=== PATIENT | female | born 1995 | race Caucasian/White ===

== ENCOUNTER 2016-12-26 15:03 | Inpatient (IN) | payer BC, OTHER ==
[2016-12-26 16:13] LABS: Urine Bacteria Absent (Absent); Urine Bilirubin Negative (Negative); Urine Glucose Negative (Negative); Urine Nitrite Negative (Negative)
[2016-12-26 16:14] LABS: Benzodiazepine Urine Screen None Detected (None Detect)
[2016-12-26] MEDS ORDERED: Ibuprofen TAB* 600 MG PO ONE (16:41)
[2016-12-26 16:43] LABS: Hematocrit 43 % (35-47); Hemoglobin 14.8 g/dl (12.0-16.0); Mean Corpuscular HGB Conc 34 g/dl (31-36); Mean Corpuscular Hemoglobin 29 pg (27-31); Mean Corpuscular Volume 84 fL (80-97); Mean Platelet Volume 8 um3 (7.4-10.4); Red Blood Count 5.12 10^6/ul (4.0-5.4); Red Cell Distribution Width 14 % (10.5-15); White Blood Count 8.3 10^3/ul (3.5-10.8)
[2016-12-26 16:54] LABS: ALT 28 U/L (7-52); AST 17 U/L (13-39); Albumin 4.3 g/dL (3.2-5.2); Alkaline Phosphatase 61 U/L (34-104); Anion Gap 8 mmol/L (2-11); BUN/Creatinine Ratio 13.8 (8-20); Blood Urea Nitrogen 11 mg/dL (6-24); CO2 Carbon Dioxide 26 mmol/L (22-32); Calcium 9.7 mg/dL (8.6-10.3); Chloride 102 mmol/L (101-111); EGFR African American 116.4 (>60); EGFR Non-African American 90.5 (>60); Globulin 3.4 g/dL (2-4); Glucose 111 mg/dL (70-100); Potassium 3.8 mmol/L (3.5-5.0); Sodium 136 mmol/L (133-145); Total Protein 7.7 g/dL (6.4-8.9)
[2016-12-26 16:55] LABS: Acetaminophen < 15 mcg/mL; Alcohol < 10 mg/dL (<10); Salicylate < 2.50 mg/dL (<30)
[2016-12-26 17:03] LABS: TSH (Thyroid Stimulating Horm) 1.69 mcIU/mL (0.34-5.60)
--- NOTE | 2016-12-26 18:25 | ED ---
Sandra Clemente SooYoung, scribed for Vishnu Larson on 12/26/16 at 1526 . Psychiatric Complaint - HPI Summary HPI Summary: A 21 y/o F presents to ED with c/o depression ongoing for many years requesting MHE. Pert PMHx: BPD. Per mom, pt sent her messages that she as going to kill herself, was acting hysterical. Associated SI without gesture or plan; HI per mother. Per mom, pt has dreams of watching her family , last had this dream last week. Denies hallucinations. Smokes. Drinks. Uses recreational drugs. - History Of Current Complaint Chief Complaint: EDMentalHealth Time Seen by Provider: 12/26/16 15:12 Hx Obtained From: Patient, Family/[employer] Coordination And Production Head Onset/Duration: Still Present Timing: Constant Character: Depressed Related History: Positive For: Prior Psychiatric Issues - BPD Has Suicidal: Reports: Thoughts. Denies: With A Plan, Demonstrates Gesture Has Homicidal: Reports: Thoughts - Allergies/Home Medications Allergies/Adverse Reactions: Allergies Allergy/AdvReac Type Severity Reaction Status Date / Time Penicillins [PCN] Allergy Rash Verified 12/26/16 15:15 Home Medications: Home Medications Melatonin 10 mg PO BEDTIME PRN 12/26/16 [History Confirmed 12/26/16] QUEtiapine TAB* [SEROquel TAB*] 50 mg PO BEDTIME 12/26/16 [History Confirmed 06/12] PMH/Surg Hx/FS Hx/Imm Hx Previously Healthy: No Endocrine/Hematology History: Denies: Hx Diabetes Cardiovascular History: Denies: Hx Hypertension, Hx Pacemaker/ICD Sensory History: Denies: Hx Hearing Aid Psychiatric History: Reports: Other Psychiatric Issues/Disorders - Borderline personality disorder Denies: Hx Panic Disorder Infectious Disease History: Denies: Traveled Outside the [place] in Last 30 Days Review of Systems Psychological: Other - pos: SI, HI; neg: hallucinations Positive: Depressed All Other Systems Reviewed And Are Negative: Yes Physical Exam Triage Information Reviewed: Yes Vital Signs On Initial Exam: Initial Vitals Temp Pulse Resp BP Pulse Ox 99.0 F 108 20 143/62 98 12/26/16 15:05 12/26/16 15:05 12/26/16 15:05 12/26/16 15:05 12/26/16 15:05 Vital Signs Reviewed: Yes Appearance: Positive: Well-Appearing, No Pain Distress Skin: Positive: Warm, Skin Color Reflects Adequate Perfusion, Dry Head/Face: Positive: Normal Head/Face Inspection Eyes: Positive: EOMI, KARLI ENT: Positive: Normal ENT inspection Neck: Positive: Supple, Nontender Respiratory/Lung Sounds: Positive: Clear to Auscultation, Breath Sounds Present Cardiovascular: Positive: RRR, Pulses are Symmetrical in both Upper and Lower Extremities Abdomen Description: Positive: Nontender, Soft Bowel Sounds: Positive: Present Musculoskeletal: Positive: Normal, Strength/ROM Intact Neurological: Positive: Normal, Sensory/Motor Intact, Alert, Oriented to Person Place, Time Psychiatric: Positive: Depressed, Other - tearful at bedside Diagnostics - Vital Signs Vital Signs Temp Pulse Resp BP Pulse Ox 12/26/16 15:05 99.0 F 108 20 143/62 98 - Laboratory Result Diagrams: 12/26/16 15:49 12/26/16 15:49 Lab Statement: Any lab studies that have been ordered have been reviewed, and results considered in the medical decision making process. Course/Dx - Course Course Of Treatment: A 21 y/o F presents with c/o depression ongoing for many years requesting MHE. Pert PMHx: BPD. Per mom, pt sent her messages that she as going to kill herself, was acting hysterical. Associated SI without gesture or plan; HI per mother. Denies hallucinations. Pt given motrin in ED. Bloodwork and UA obtained. Medically cleared for MHE evaluation at 1700. 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 - Differential Dx/Clinical Impression Provider Diagnosis: Depression, Acute psychosis, Homicidal ideation Discharge - Discharge Plan Condition: Stable Disposition: ADMITTED TO [facility] Referrals: Hien Palafox, [facility] [Primary Care Provider] - The documentation as recorded by the Sandra drummond SooYoung accurately reflects the service I personally performed and the decisions made by , Vishnu Larson.
[2016-12-26] MEDS ORDERED: Al Hydrox/Mg Hydrox/Simet LIQ* 30 ML UDC PO PRN (20:47)
[2016-12-26] MEDS: QUEtiapine TAB* 25 MG PO SCH ×2 (22:36→23:20)
[2016-12-27] MEDS: Vitamin THERAPEUTIC TAB PO SCH (12:39)
[2016-12-27] MEDS: buPROPion TAB* 75 MG PO SCH (17:41)
--- NOTE | 2016-12-27 18:44 | HP ---
HISTORY AND PHYSICAL: DATE OF ADMISSION: 12/26/16 IDENTIFYING DATA: Magalie is a 21-year-old partnered, domiciled, unemployed female, who was referred by relatives and she was admitted on voluntary status. CHIEF COMPLAINT: "I could not take the depression any longer, I need help!" HISTORY OF PRESENT ILLNESS: The patient relates having a history of depression on and off for the past 2 years. She endorses several weeks of worsening symptoms of sad and irritable mood, decreased appetite, poor sleep, vague thoughts of suicide but no history of previous attempt or self-injury, daytime tiredness, isolating from others, impaired attention and concentrations, feelings of guilt, hopelessness, helplessness, and worthlessness in addition to self-image issues. The patient is currently on Seroquel 50 mg at bedtime prescribed by her primary care provider. She relates having been compliant with taking the prescribed medication. She denies endorses occasional cannabis use and urine toxicology screen is positive for cannabinoids. She describes stressors of strained relationship with a maternal aunt who has moved in with her and her boyfriend. She finds the aunt very triggering. Since quitting her job at [employer] last September, she has felt socially isolated as her only support is her live-in boyfriend who works the nightshift at [employer]. She also reports some financial pressure due to the fact that her boyfriend is the only one who is working. REVIEW OF PSYCHIATRIC SYMPTOMS: She reports historical diagnosis of bipolar disorder, describes difficulty with anger, low frustration tolerance, irritability and mood lability, but denies decreased need for sleep, increased goal directness, periods of racing thoughts, pressured speech or grandiosity. The patient denies excessive anxiety, panic attacks, obsessive thoughts or compulsive rituals. She describes difficulty with recurring nightmares of watching herself or others killing her family members. She describes a remote history of auditory hallucinations in the form of voices calling her name but this has not been the case recently. She also has historical diagnosis of attention deficit hyperactivity disorder. She described difficulty with easy distractibility, forgetfulness, difficulty organizing tasks and engaging in activities requiring sustained mental effort. PAST PSYCHIATRY HISTORY: This is the patient's first inpatient psychiatric admission. She has a history of outpatient therapy starting at age 12 at [facility] because of difficulty in her personal interactions with school peers. At the time she was diagnosed with ADHD and considerations for a mood disorder. At age 15, she was part of a study at [facility], she was diagnosed as having borderline personality disorder and was prescribed Geodon 100 mg daily that she says was not effective. The patient has not been in any outpatient care recently. Over the years, she has had diagnoses of ADHD, bipolar disorder, borderline personality disorder, and restless legs syndrome. MEDICATION HISTORY: She is able to recall past trial of ABILIFY caused her tongue to swell, Geodon that was not effective, CONCERTA was discontinued because of insomnia and nightmares, and STRATTERA caused increased irritability , mood lability, and auditory hallucinations and was discontinued. SUICIDE/HOMICIDE HISTORY: The patient denies any previous benny suicide attempts, any history of self-injury or violence. TRAUMA/ABUSE HISTORY: The patient reports that she was in the home when her mother attempted suicide by taking an overdose of a prescribed medications. She denies flashback or symptoms of hypervigilance or avoidance suggestive of PTSD. PAST MEDICAL HISTORY: Remarkable for obesity. She denies any other active medical problem. She is followed at [facility] by family nurse practitioner, Hien Palafox. The patient's menarche was at age 12. The patient has been sexually active with her live-in boyfriend. She uses condom for protection. She declined testing for STIs. SUBSTANCE ABUSE HISTORY: The patient admitted to smoking marijuana at least 2 to 3 times a week and she has been smoking since her teenage years. She denies the use of tobacco, alcohol, or other illicit drugs. FAMILY HISTORY: Family history of depression and suicide attempt in her biological mother and of bipolar disorder in maternal aunt and in cousins with suicide attempts and psychiatric hospitalizations. PERSONAL AND SOCIAL HISTORY: The patient is the only child of parents who when she was about [age] year old. Subsequently, her mother was in a relationship with her stepfather until she was 9 years old and that relationship ended. The mother has been in a relationship with a third gentleman since she was 9 to until now. The patient lives with her boyfriend in the house that belongs to her mother. The patient's maternal aunt recently moved in with them, which she reports is a source of stress. 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 She attended 1 semester of college at [employer] with plan to major in photography. She dropped out because of stress.. She was employed at [employer] and left her job in September because of "too much drama." She identified as being heterosexual. She has been sexually active with her live-in boyfriend in ways she finds satisfying. The patient describes spending her time in bed, watching TV, playing games and taking care of her 7 cats and 1 dog. REVIEW OF MEDICAL SYMPTOMS: Obesity. PHYSICAL EXAMINATION GENERAL: She is a moderately obese 21-year-old white female who does not appear to be in any acute physical distress. She is alert. She is oriented to time, place, person. ADMISSION VITAL SIGNS: Blood pressure 123/80, pulse is 87, respirations 18, temperature is 97.9. SKIN: Skin texture, turgor, and pigmentation are within normal limits. HEENT: Head is atraumatic, normocephalic, and symmetrical. Eyes: PERRLA. Tympanic membranes intact. Sclerae nonicteric. Conjunctivae clear. NECK: Trachea midline, freely mobile. No cervical lymphadenopathy. No nuchal rigidity. LUNGS: Clear to auscultation bilaterally. HEART: Regular rate and rhythm. S1, S2. No murmurs, gallops, or rubs. BREASTS EXAM: Not performed. ABDOMEN: Obese, but soft, nontender. No masses, organomegaly, or rebound tenderness. No scars noted. Active bowel sounds in 4 quadrants. EXTREMITIES: No pain. No limitation in the range of movement. Pulses are equal and adequate in all 4 extremities. NEUROLOGIC: Cranial nerves II through XII are intact. Cerebellar function intact. Muscle strength grade 5/5 in all 4 extremities. STRUCTURAL EXAM: The patient examined in both supine and upright positions. No gross AP or lateral asymmetry. Gait and movement are within normal limits. LABORATORY DATA: Laboratories on admission: Her CBC, complete metabolic panel , urinalysis within normal limits. Urine toxicology screen is positive for cannabinoids. MENTAL STATUS EXAMINATION: Finds a moderately obese 21-year-old white female with shoulder length brown hair and black rimmed glasses. She makes poor eye contact. She presents as guarded and superficially cooperative. She exhibits some degree of psychomotor retardation. No abnormal movements are observed. Her speech is terse and needs to be prompted. Her affect is constricted. Mood is depressed. Thoughts are linear and goal directed. No evidence of formal thought disorder and no overt delusions. She denies auditory or visual hallucinations. She endorses passive wish, but denies active suicidal ideation or urges to self-mutilate and she contracts for safety in this setting. Insight and judgment are limited. Impulse control is good. She is alert. She is oriented to time, place, and person. Attention, memory, and concentration are all poor. Fund of knowledge is adequate. Intelligence is estimated to be in normal average range. SUMMARY: First inpatient psychiatric admission for this 21-year-old female with history of cannabis use, outpatient care since age 12, multiple medication trials, currently trial of Seroquel 50 mg at bedtime, previous diagnosis of ADHD , bipolar disorder, borderline personality disorder, who was referred by relatives and was admitted voluntarily because of worsening depressive symptoms including vague thoughts of suicide and inability to contract for safety. Her medical history is remarkable for obesity. There is family history of depression and suicide attempt in her biological mother and of bipolar disorder in maternal aunt and cousins and suicide attempts and psychiatric hospitalizations. The patient described stressors of feeling socially isolated , strained relationship with her maternal aunt, and financial strain on her family. DIAGNOSTIC IMPRESSIONS: Major depressive disorder, recurrent, moderate, without psychotic feature; Attention deficit hyperactivity disorder, by history ; Borderline personality disorder.. TREATMENT PLAN: Admit to mental health unit, 15-minute checks, full code status , legal status is voluntary. Initiate comprehensive milieu, individual and group psychotherapeutic support. Medication management will involve continuing trial of Seroquel 50 mg at bedtime and new trial of bupropion for depression. The patient will also be asked to complete psychological testing to clarify her diagnosis. Discharge planning will involve reconnecting her to outpatient psychiatric providers after discharge from the hospital and possible referral for substance abuse treatment. [id number]/[facility] #: [id number] AVIVA
[2016-12-27] MEDS: Acetaminophen TAB* 325 MG PO PRN (19:50)
[2016-12-27] MEDS: QUEtiapine TAB* 25 MG PO SCH (20:37)
[2016-12-28] MEDS: Vitamin THERAPEUTIC TAB PO SCH (09:32)
[2016-12-28] MEDS: buPROPion TAB* 75 MG PO SCH (09:32)
--- NOTE | 2016-12-28 15:20 | PN ---
Subjective - Subjective Service Type: 05035 Hosp care 15 min low complexity Subjective: Sherrie reports that she is somewhat depressed but has not experienced any bad dream since her admission. Feels safe and was found to be happy with male peers in the milieu. Objective - Appearance Appearance: Obese Dysmorphic Features: No Hygiene: Normal Grooming: Well Kept - Behavior Psychomotor Activities: Normal Exhibits Abnormal Movement: No - Attitude and Relatedness Attitude and Relatedness: Appropriate Eye Contact: Good - Speech Quality: Unpressured Latencies: Normal Quantity: Appropriate - Mood Patient's Decription of Mood: "Fine" - Affect Observed Affect: Non-labile - Thought Process Patient's Thought Process: Coherent, Goal Directed Thought Content: No Passive Wish, No Suicidal Planning, No Homicidal Ideation, No Paranoid Ideation - Sensorium Experiencing Hallucinations: No, Sensorium is Clear Type of Hallucinations: Visual: No, Auditory: No, Command: No - Level of Consciousness Level of Consciousness: Alert Orientation: Yes Intact, Yes Orientated to Time, Yes Orientated to Place, Yes Orientated to Person - Impulse Control Impulse Control: Intact - Insight and Judgement Insight and Judgement: Fair - Group Participation Particating in Group Activities: Yes - Medication Management Medication Management Adherence: Yes Assessment - Assessment Merits Inpatient Hospitalization: For Stabilization, Pending Safe DC Plan Plan - Plan Treatment Plan: Name: SHERRIE TRIPP Birthdate: 1995 [id number] Continued Medication Management: Continue Outpt Medication Medications: Current Medications Acetaminophen (Tylenol Tab*) 650 mg PO Q4H PRN PRN Reason: PAIN or TEMP > 101 F Last Admin: 12/27/16 19:50 Dose: 650 mg Al Hydrox/Mg Hydrox/Simethicone (Maalox Plus*) 30 ml PO Q4H PRN PRN Reason: INDIGESTION Bupropion HCl (Wellbutrin Tab*) 75 mg PO DAILY [facility] Last Admin: 12/28/16 09:32 Dose: 75 mg Multivitamins (Theragran Tab*) 1 tab PO DAILY [facility] Last Admin: 12/28/16 09:32 Dose: 1 tab Quetiapine Fumarate (Seroquel Tab*) 50 mg PO BEDTIME [facility] Last Admin: 12/27/16 20:37 Dose: 50 mg - Discharge Plan Discharge Plan: Outpatient Follow Up Outpatient Program: [facility]
[2016-12-28] MEDS: Acetaminophen TAB* 325 MG PO PRN (15:47)
[2016-12-28] MEDS: QUEtiapine TAB* 25 MG PO SCH (20:13)
[2016-12-29] MEDS: buPROPion TAB* 75 MG PO SCH (08:39)
[2016-12-29] MEDS: Vitamin THERAPEUTIC TAB PO SCH (08:39)
--- NOTE | 2016-12-29 11:47 | PN ---
[facility]: Group Therapy Note - Service Type Service Type: 01999 Group Psychotherapy - Cognitive Behavioral Group Therapy ( CBT):Patient was attentive and participatory in CBT programming this morning, and remained in good behavioral control. Patient expressed positive insights regarding relevant treatment interventions and goals.
[2016-12-29] MEDS ORDERED: Polyethylene Glycol 3350* 17 GM PACKET PO PRN (12:03)
--- NOTE | 2016-12-29 12:17 | PN ---
Subjective - Subjective Service Type: 52544 Hosp care 15 min low complexity Subjective: Patient reports mild improvement in depressed mood and energy. She reports continued anxiety due to social phobia. She reports dreams of suicide. She requests suggestions for sleep aides as melatonin can worsen nightmares. She reports no BM since last week and attributes this to unfamiliar surroundings. She reports hx of constipation, treated well with miralax. Objective - Appearance Appearance: Obese Dysmorphic Features: Yes Hygiene: Normal Grooming: Well Kept - Behavior Psychomotor Activities: Normal Exhibits Abnormal Movement: No - Attitude and Relatedness Attitude and Relatedness: Cooperative Eye Contact: Good - Speech Quality: Unpressured Latencies: Normal Quantity: Appropriate - Mood Patient's Decription of Mood: "Anxious" - Affect Observed Affect: Good Affect Consistent with: Euthymia - Thought Process Patient's Thought Process: Coherent, Goal Directed Thought Content: No Passive Wish, No Suicidal Planning, No Homicidal Ideation, No Paranoid Ideation - Sensorium Experiencing Hallucinations: No, Sensorium is Clear Type of Hallucinations: Visual: Yes, Auditory: Yes, Command: Yes - Level of Consciousness Level of Consciousness: Alert Orientation: Yes Intact, Yes Orientated to Time, Yes Orientated to Place, Yes Orientated to Person - Impulse Control Impulse Control: Tenuous - Insight and Judgement Insight and Judgement: Good - Group Participation Particating in Group Activities: Yes - Medication Management Medication Management Adherence: Yes Assessment - Assessment Merits Inpatient Hospitalization: For Immediate Safety, For Stabilization, For Discharge Planning Inpatient DSM-IV Dx: I: MDD; ADHD by hx. II: borderline personality d/o. III: obesity, constipation. IV: stressors r/t unemployment, financial strain. V: 45 Clinical Impression: Patient is a 21yo domiciled, unemployed female present for first psychiatric hospitalization. She reports some improvement in depressive symptoms and endorses anxiety. Continued hospitalization necessary to plan for family meeting and discharge. Plan - Plan Treatment Plan: Name: SHERRIE TRIPP Birthdate: 1995 [id number] Continue quetiapine and buproprion. Add hydroxyzine for anxiety and insomnia. Add miralax for constipation and encourage fluids and physical activity. Decrease observation to 30 min and allow staff pass. Continued Medication Management: Different Medication Medications: Current Medications Acetaminophen (Tylenol Tab*) 650 mg PO Q4H PRN PRN Reason: PAIN or TEMP > 101 F Last Admin: 12/28/16 15:47 Dose: 650 mg Al Hydrox/Mg Hydrox/Simethicone (Maalox Plus*) 30 ml PO Q4H PRN PRN Reason: INDIGESTION Bupropion HCl (Wellbutrin Tab*) 75 mg PO DAILY [facility] Last Admin: 12/29/16 08:39 Dose: 75 mg Hydroxyzine HCl (Atarax Tab*) 25 mg PO Q6H PRN PRN Reason: ANXIETY/INSOMNIA Multivitamins (Theragran Tab*) 1 tab PO DAILY [facility] Last Admin: 12/29/16 08:39 Dose: 1 tab Polyethylene Glycol/Electrolytes (Miralax*) 17 gm PO DAILY PRN PRN Reason: CONSTIPATION Quetiapine Fumarate (Seroquel Tab*) 50 mg PO BEDTIME [facility] Last Admin: 12/28/16 20:13 Dose: 50 mg - Discharge Plan Discharge Plan: Outpatient Follow Up Outpatient Program: [facility]
[2016-12-29] MEDS: hydrOXYzine HCL TAB* 25 MG PO PRN ×2 (12:20→20:10)
[2016-12-29] MEDS: QUEtiapine TAB* 25 MG PO SCH (20:07)
[2016-12-30 07:46] VITALS: BP 121/65
[2016-12-30] MEDS: Vitamin THERAPEUTIC TAB PO SCH (09:17)
[2016-12-30] MEDS: buPROPion TAB* 75 MG PO SCH (09:17)
[2016-12-30] MEDS: hydrOXYzine HCL TAB* 25 MG PO PRN ×2 (11:43→22:51)
--- NOTE | 2016-12-30 14:33 | PN ---
Subjective - Subjective Service Type: 24080 Hosp care 15 min low complexity Subjective: Patient reports improved mood and sleep. She reports decrease in anxiety with use of hydroxyzine. She states that she spoke with her mother about planning a family meeting-- she is not available today but can meet any time tomorrow. Sherrie reports current stressors are lessened in that her aunt is no longer living in the home. She plans to help clean and organize the home upon returning. She reports a small BM and continues to utilize miralax as ordered. She requests use of calvin's vapor rub for nasal congestion. Objective - Appearance Appearance: Well Developed/Nourished, Obese Dysmorphic Features: No Hygiene: Normal Grooming: Well Kept - Behavior Psychomotor Activities: Normal Exhibits Abnormal Movement: No - Attitude and Relatedness Attitude and Relatedness: Cooperative Eye Contact: Good - Speech Quality: Unpressured Latencies: Normal Quantity: Appropriate - Mood Patient's Decription of Mood: "Okay" - Affect Observed Affect: Good Affect Consistent with: Euthymia - Thought Process Patient's Thought Process: Coherent, Goal Directed Thought Content: No Passive Wish, No Suicidal Planning, No Homicidal Ideation, No Paranoid Ideation - Sensorium Experiencing Hallucinations: No, Sensorium is Clear Type of Hallucinations: Visual: No, Auditory: No, Command: No - Level of Consciousness Level of Consciousness: Alert Orientation: Yes Intact, Yes Orientated to Time, Yes Orientated to Place, Yes Orientated to Person - Impulse Control Impulse Control: Intact - Insight and Judgement Insight and Judgement: Good - Group Participation Particating in Group Activities: Yes - Medication Management Medication Management Adherence: Yes Assessment - Assessment Merits Inpatient Hospitalization: For Discharge Planning, Pending Safe DC Plan Inpatient DSM-IV Dx: I: MDD; ADHD by hx. II: borderline personality d/o. III: obesity, constipation. IV: stressors r/t unemployment, financial strain. V: 45 Clinical Impression: Patient is a 21yo domiciled, unemployed female present for first psychiatric hospitalization. She reports improvement in depressive symptoms and anxiety. Family meeting and discharge planned for tomorrow. Plan - Plan Treatment Plan: Name: SHERRIE TRIPP Birthdate: 1995 [id number] Continue medications and intensive acute inpatient psychiatric treatment. Decrease observation to 30 min and allow staff pass. Continued Medication Management: Different Medication Medications: Current Medications Acetaminophen (Tylenol Tab*) 650 mg PO Q4H PRN PRN Reason: PAIN or TEMP > 101 F Last Admin: 12/28/16 15:47 Dose: 650 mg Al Hydrox/Mg Hydrox/Simethicone (Maalox Plus*) 30 ml PO Q4H PRN PRN Reason: INDIGESTION Bupropion HCl (Wellbutrin Tab*) 75 mg PO DAILY [facility] Last Admin: 12/30/16 09:17 Dose: 75 mg Hydroxyzine HCl (Atarax Tab*) 25 mg PO Q6H PRN PRN Reason: ANXIETY/INSOMNIA Last Admin: 12/30/16 11:43 Dose: 25 mg Multivitamins (Theragran Tab*) 1 tab PO DAILY [facility] Last Admin: 12/30/16 09:17 Dose: 1 tab Polyethylene Glycol/Electrolytes (Miralax*) 17 gm PO DAILY PRN PRN Reason: CONSTIPATION Last Admin: 12/29/16 14:44 Dose: 17 gm Quetiapine Fumarate (Seroquel Tab*) 50 mg PO BEDTIME [facility] Last Admin: 12/29/16 20:07 Dose: 50 mg - Discharge Plan Discharge Plan: Outpatient Follow Up Outpatient Program: [facility]
[2016-12-30] MEDS: QUEtiapine TAB* 25 MG PO SCH (21:57)
[2016-12-31] MEDS: Vitamin THERAPEUTIC TAB PO SCH (08:57)
[2016-12-31] MEDS: buPROPion TAB* 75 MG PO SCH (08:58)
--- NOTE | 2016-12-31 16:11 | DS ---
CC: [facility]; JULIANNA Choi DATE OF ADMISSION: 12/26/2016. DATE OF DISCHARGE: 12/31/2016. SUPERVISING PSYCHIATRIST: Dr. Ezequiel Wells * (dictated by ANGELA Aleman ). DISCHARGE DIAGNOSES: AXIS I: Major depressive disorder, moderate, recurrent; ADHD by history. AXIS II: Borderline personality disorder; intellectual disability, mild. AXIS III: Obesity. AXIS IV: Stressors related to interpersonal relationships, unemployment, financial strain, conflict with parents. AXIS V: 65. CONDITION AT TIME OF DISCHARGE: Improved. The patient has been pleasant and euthymic. She has been participating fully in programming. She has been interactive with peers and staff and she is receptive to suggestions in regards to coping skills and stress management. Her mother joined for discharge planning meeting today with Montserrat Lindquist and this aligner typewriter, and discussed stressors leading to hospitalization and plans for follow-up care. The patient and mother were given positive feedback about interactions with each other and observation of effective communication. The patient is agreeable to following up with [facility] and [facility]. sawmill or timber yard worker, mother and patient problem solved in regards to patient's hoarding behavior and caring for multiple animals in the home. Patient denies depressed mood and anxiety. She denies suicidal ideation or SIB urges. MENTAL STATUS EXAM: The patient is well-groomed, adequate ADL's. She wears her hair down and dark-rimmed glasses. She is wearing her own clothing. She is pleasant and cooperative and answers questions fully. She is alert and oriented times three. Her concentration is good. Her memory is 3/3. Her mood is good. Affect is full range. Speech is soft and articulate. Thought process is logical, goal-directed, and coherent. Thought content negative for AV hallucinations, SI, HI, and SBI urges. Her insight is good. Her judgment is fair. Fund of knowledge is adequate. DISCHARGE INSTRUCTIONS: Instructions were given to the patient by nursing staff. The following medications were electronically prescribed to [facility] in [place]: The patient will continue Bupropion 75 mg p.o. daily and Quetiapine 50 mg p.o. at bedtime. She was instructed on use of prn Hydroxyzine 25 mg b.i.d., as needed only for anxiety. She was provided with a two weeks' supply of all of these medications. Diet is regular. Activity is ambulation as tolerated. Tobacco cessation not applicable. There are no pending labs or diagnostic studies at the time of discharge. She will follow-up with [facility] and has an intake scheduled by train planner. She will see her primary care provider on Wednesday and is instructed to ask for bridge prescriptions until she meets with a prescriber at [facility]. HOSPITAL COURSE: A. Reason for admission: The patient presented to the emergency department with an increase in depression and agitation and vague thoughts of suicide. She had had decrease in functioning and ADL's. B. Psychiatric treatment rendered: The patient was admitted to the Adult Behavioral Services Unit on voluntary status. Codes status was full. She was placed on 15 minute checks for safety, encouraged to participate in supportive milieu and individual and group psychoeducation. On-call psychiatrist continued Quetiapine at bedtime and added Bupropion for depression. She tolerated this well. She participated fully in unit programming. She denies side effects of medicines. She inquired about medications for anxiety and sleep ; discussed use of Hydroxyzine as needed and she was agreeable to a trial of this. She completed an MMPI for diagnostic clarification; please see report by Dr. Rohan Dunham. She had seen counselors in the past at [facility]. She reported desire to follow-up with [facility] instead. The patient was safe on all checks. She was decreased to q.30 minute observation and allowed to go on staff pass. One of the stressors that led to admission was her aunt living in the home who has since moved out. Her mother was involved in discharge planning and present for discharge meeting with this aligner typewriter and the social media campaign manager. The patient was agreeable to discharge and looking forward to returning home. She was encouraged to return to the ED should symptoms worsen. DINA SCHNEIDER NP [id number]/[facility] #: [id number] AVIVA
== END 2016-12-31 12:15 | disposition home or self-care (01) | DRG 751 ==
LOC: ED 15:03 → BSU 19:58
PROVIDERS: ADMIT Psychiatry & Neurology Psychiatry; ATTEND Psychiatry & Neurology Psychiatry
PROC: GZHZZZZ Group Psychotherapy (ICD-10-PCS; principal; 2016-12-29)
DX: F33.1 Major depressive disorder, recurrent, moderate (principal); F70 Mild intellectual disabilities; E66.9 Obesity, unspecified; F90.9 Attention-deficit hyperactivity disorder, unspecified type; F60.3 Borderline personality disorder; G25.81 Restless legs syndrome; F12.90 Cannabis use, unspecified, uncomplicated; F41.9 Anxiety disorder, unspecified; K59.00 Constipation, unspecified; F40.10 Social phobia, unspecified; Z56.0 Unemployment, unspecified; Z81.8 Family history of other mental and behavioral disorders; Z88.0 Allergy status to penicillin; Z68.35 Body mass index [BMI] 35.0-35.9, adult
CPT/HCPCS: 36415; 80053; 80307; 80320; 80329; 81003; 81015; 84443; 84702; 85025; 87086; A9270-GY; G0480

== ENCOUNTER 2018-02-21 08:40 | Inpatient (IN) | payer OTHER ==
[2018-02-21] MEDS ORDERED: Clindamycin CAP* 150 MG PO ONE (09:06)
[2018-02-21] MEDS ORDERED: Ibuprofen TAB* 600 MG PO ONE (09:06)
--- NOTE | 2018-02-21 09:08 | ED ---
Psychiatric Complaint - HPI Summary HPI Summary: This pt is a 22 y/o female, accompanied by her mother, presenting to [facility] for mental health evaluation and dental pain. Pt reports left sided dental pain and had waited 2 weeks to get an appointment to see the dentist today. Pt states the dentist canceled the appointment and now she is "pissed because it's going to be another 2 weeks to get an appointment." Mother reports this morning "she freaked out." Per mother, pt is very unstable. Pt states "I'm unstable because I can't sleep and have not gotten a good night sleep because of my toothache." She reports trying Melatonin, Zquil, tea to help her sleep with no effect. Pt admits to feeling depressed. Denies SI thoughts/plan, hallucinations. Mother states last week pt told her she is hearing voices and stated she wants to . Mother reports the pt has stopped taking her antidepressant medications and won' t see her therapist. Pt notes she is here today because she asked to come here to get evaluated. Pt lives alone. Mother notes "she lives in [facility] and she does not shower." PMHx: borderline personality disorder (diagnosed 6 years ago), anxiety, depression. Pt was hospitalized in September 2016 for mental health and per mother pt was doing well until recently. Pt admits to marijuana use, states she has not smoked marijuana in 1 week. - History Of Current Complaint Chief Complaint: EDPsychosocial Time Seen by Provider: 02/21/18 08:56 Hx Obtained From: Patient, Family/Lance Crewmember - Mother Onset/Duration: Lasting Days, Still Present Timing: Days Severity Currently: Moderate Character: Depressed, Anxious, Angry, Frustrated Aggravating Factor(s): Recent Stress - dentist canceled appointment Alleviating Factor(s): Nothing Associated Signs And Symptoms: Positive: Sleep Disturbance Related History: Positive For: Prior Psychiatric Issues Has Suicidal: Denies: Thoughts, With A Plan Has Homicidal: Denies: Thoughts, With A Plan Recent Stressor(s): dentist canceled appointment - Allergies/Home Medications Allergies/Adverse Reactions: Allergies Allergy/AdvReac Type Severity Reaction Status Date / Time Penicillins Allergy Rash Verified 02/21/18 09:07 Home Medications: Home Medications NK [No Home Medications Reported] 02/21/18 [History Confirmed 02/21/18] PMH/Surg Hx/FS Hx/Imm Hx Endocrine/Hematology History: Denies: Hx Diabetes Cardiovascular History: Denies: Hx Hypertension, Hx Pacemaker/ICD Sensory History: Denies: Hx Cataracts, Hx Contacts or Glasses, Hx Hearing Aid Opthamlomology History: Denies: Hx Cataracts, Hx Contacts or Glasses Psychiatric History: Reports: Hx Anxiety, Hx Depression, Hx of Violent Episodes Against Others, Other Psychiatric Issues/Disorders - Borderline personality disorder Denies: Hx Eating Disorder, Hx Panic Disorder Infectious Disease History: No Infectious Disease History: Denies: Hx Clostridium Difficile, Traveled Outside the [place] in Last 30 Days - Family History Family History: Mother with hx of depression. - Social History Alcohol Use: None Substance Use Type: Reports: None Substance Use Comment - Amount & Last Used: occassional, last used 1 week ago Smoking Status (MU): Never Smoked Tobacco Length of Time of Smoking/Using Tobacco: Patient has not smoked cig, chewed or vapored within the last 30 days. Review of Systems Constitutional: Other - sleep disturbance Negative: Fever, Chills Positive: Dental Pain Positive: no symptoms reported Positive: Anxious, Depressed. Negative: Other - SI thoughts, plan, hallucinations All Other Systems Reviewed And Are Negative: Yes Physical Exam - Summary Physical Exam Summary: Appearance: Well appearing, no pain distress Skin: warm, dry, reflects adequate perfusion Head/face: Pt has tenderness around the 17th tooth. Eyes: EOMI, KARLI ENT: normal Neck: supple, nontender Respiratory: CTA, breath sounds present Cardiovascular: RRR, pulses symmetrical Abdomen: nontender, soft Bowel: present Musculoskeletal: normal, strength/ROM intact Neuro: normal, sensory motor intact, A&Ox3 Psych: anxious Triage Information Reviewed: Yes Vital Signs On Initial Exam: Initial Vitals Temp Pulse Resp BP Pulse Ox 98.2 F 95 18 145/101 98 02/21/18 08:41 02/21/18 08:41 02/21/18 08:41 02/21/18 08:41 02/21/18 08:41 Vital Signs Reviewed: Yes Diagnostics - Vital Signs Vital Signs Temp Pulse Resp BP Pulse Ox 02/21/18 08:41 98.2 F 95 18 145/101 98 - Laboratory Result Diagrams: 02/21/18 09:04 02/21/18 09:04 Lab Statement: Any lab studies that have been ordered have been reviewed, and results considered in the medical decision making process. Re-Evaluation - Re-Evaluation First Eval Re-Evaluation Time: 10:32 Comment: Pt is medically cleared. Course/Dx - Course Assessment/Plan: Pt is a 22 y/o female, with hx of borderline personality disorder noncompliant with medications, who presents to the ED for mental health evaluation and dental pain. Pt reports she is depressed. Per mother pt has voiced SI and hallucinations. Blood work was obtained. In the ED course she was given clindamycin and ibuprofen. Pt was medically cleared at 10:32. She had a mental health evaluation and her case was reviewed by Dr. Wells, psychiatrist. Dr. Wells will admit the pt voluntarily with diagnosis of unspecified depression. - Differential Dx/Clinical Impression Differential Diagnosis/HQI/PQRI: Positive: Anxiety, Depression, Suicidal Ideation Provider Diagnosis: Depression Discharge - Sign-Out/Discharge Documenting (check all that apply): Patient Departure - Admit to [facility] - Discharge Plan Condition: Stable Disposition: PSYCHIATRIC FACILITY-[facility] [place] Referrals: [facility] [Primary Care Provider] - - Billing Disposition and Condition Condition: STABLE Disposition: Psychiatric Facility [facility] [place] - Attestation Statements Document Initiated by Scribe: Yes Documenting Scribe: Eveline Yanez Provider For Whom Lukas is Documenting (Include Credential): Vishnu Larson MD Scribe Attestation: Eveline Clemente scribed for Vishnu Larson MD on 02/21/18 at 1242. Scribe Documentation Reviewed: Yes Provider Attestation: The documentation as recorded by the Eveline drummond accurately reflects the service I personally performed and the decisions made by , Vishnu Larson MD
[2018-02-21 09:19] LABS: ABS Basophils 0.1 10^3/ul (0-0.2); ABS Eosinophils 0.1 10^3/ul (0-0.6); ABS Lymphocytes 2.7 10^3/ul (1.0-4.8); ABS Monocytes 0.6 10^3/ul (0-0.8); ABS Neutrophils 6.9 10^3/ul (1.5-7.7); ABS Nucleated RBC 0 10^3/ul; Eosinophil % 1.3 % (0-6); Hematocrit 43 % (35-47); Lymphocyte % 26.4 % (25-47); Mean Corpuscular HGB Conc 35 g/dl (31-36); Mean Corpuscular Hemoglobin 30 pg (27-31); Mean Corpuscular Volume 86 fL (80-97); Mean Platelet Volume 8.5 um3 (7.4-10.4); Nucleated Red Blood Cells % 0.2; Platelet Count 275 10^3/ul (150-450); Red Blood Count 5.05 10^6/ul (4.00-5.40); Red Cell Distribution Width 14 % (10.5-15); White Blood Count 10.4 10^3/ul (3.5-10.8)
[2018-02-21 09:39] LABS: EGFR Non-African American 98.1 (>60)
[2018-02-21] MEDS ORDERED: Al Hydrox/Mg Hydrox/Simet LIQ* 30 ML UDC PO PRN (12:48)
[2018-02-21] MEDS ORDERED: hydrOXYzine HCL TAB* 50 MG PO PRN (12:50)
[2018-02-21] MEDS: Acetaminophen TAB* 325 MG PO PRN (15:41)
[2018-02-21] MEDS: Benzocaine/Menthol LOZ* 1 LOZENGE PO PRN (18:07)
[2018-02-21] MEDS: Ibuprofen TAB* 600 MG PO PRN (20:43)
[2018-02-22] MEDS: Benzocaine/Menthol LOZ* 1 LOZENGE PO PRN ×3 (00:55→21:21)
[2018-02-22] MEDS: Ibuprofen TAB* 600 MG PO PRN (09:03)
[2018-02-22] MEDS: Acetaminophen TAB* 325 MG PO PRN (10:23)
[2018-02-22] MEDS ORDERED: Mirtazapine TAB* 15 MG PO PRN (12:36)
--- NOTE | 2018-02-22 15:40 | HP ---
DATE OF ADMISSION: 02/21/2018. PROVIDER: Brianda Bowden NP in Psychiatry. SUPERVISING PHYSICIAN: Dr. Ezequiel Wells * (dictated by Brianda Bowden NP). JUSTIFICATION FOR ADMISSION: The patient is in need of 24 hour supervision and care secondary to suicidal ideation. CHIEF COMPLAINT: "I want help sleeping and I want to get my energy and motivation back." HISTORY OF PRESENT ILLNESS: The patient is a 22-year-old female who is single, white, with a history of depression and anxiety who arrived brought in by her mom on a voluntary status following her making statements such as "I don't really want to live anymore." Magalie is endorsing needing her mom in her life. She says she has been depressed since fifth grade and she has not been able to sleep for a couple of years. She describes her depression as having no energy and no social outlets. She is not sad, but she is "blah-ava." She is fatigued. She does not want to get out of bed because she does not want to face the world. She states that her sleep is correlated with depression. She states about her anxiety, "Mom thinks I'm paranoid;" rather it seems that she has high sensitivity, that she is worried about what other people are thinking about her and what they might say about her behind her back. She is stressed out by feeling "lousy." She is not working. She is lonely. She also has back pain related to a weak core according to the doctors that she has been to. She states she was suicidal last year because she was living with an aunt named Rizwana who was "an awful person." She does not feel as though she can work right now. She has no energy. She has little interest in anything besides playing video games. She finds it difficult to concentrate. She reports that she does not eat well and she does from time to time have suicidal ideation. PAST PSYCHIATRIC HISTORY: He was admitted here at [facility] in December of 2016. She is not currently receiving outpatient treatment. She used to receive treatment through [facility] and now through Hien Palafox NP, but she is not taking any medications right now. Suicidal ideation is reported through her mother. She does not have access to weapons. She cannot remember what her previous psychiatric medications were, although she does note that the last medication she took was likely Seroquel which helped with sleep, but was not right because she does not like it to instantly kick in. She likes to take it on a schedule and she not like to deviate from the schedule, even when that means she takes her medication and then goes out afterwards. She has taken ZzzQuil and Melatonin for sleep. She has taken something called a Neuro drink for sleep that worked well, but included side effects of nausea. She has tried chamomile tea and warm milk, but she states she is lactose intolerant, so that made her sick. Magalie reports that she used to see and hear things in the past, but this was in the context of being very sleepy and having daydreams where she was nodding off. TRAUMA HISTORY: She denies. She states she was bullied in school and her mom and rojasdad used to say mean things to her when they were using alcohol heavily. HISTORY OF SUBSTANCE ABUSE: She denied all substances other than marijuana which she states she uses to heal her back pain. TRAUMATIC BRAIN INJURY: She states she has been hit in the head with volleyballs and basketballs, but she never lost consciousness. PAST MEDICAL HISTORY: She states she has a "bad back" which she has seen doctors and chiropractors for and has not found any help. It seems that she may need to do exercise, but she is not interested in doing that. DRUG ALLERGIES: PENICILLIN. FAMILY HISTORY: She states she comes from a "long line of illness." Mom is depressed and takes medication. Aunt is anxious, depressed, and has bipolar disorder. Two cousins have been hospitalized for suicidal ideation. Grandfather has hypertension and diabetes. SOCIAL HISTORY: She lives alone with three cats, one dog, and six kittens. She lives in [place] near her parents. She has been educated through high school at [employer]. She is not . She does not have roommates or children. She is unemployed. She states she would like to get a job, but she feels like she cannot because she does not have enough energy. She has never been in the . She has no legal problems. REVIEW OF SYMPTOMS: The patient reports feeling fatigued. She denies SOB, heat or cold intolerance, chest pain or abdominal pain. She does state she has back pain, specifically her lower back and between her shoulder blades. She denies neurological symptoms. She denies fevers or changes in weight. PHYSICAL EXAMINATION VITAL SIGNS: On 02/21/2018 at 1449, temperature 99, pulse 88, respirations 16, O2 sat on room air 99, blood pressure 117/76. For further exam data, please see emergency department records. LABORATORY DATA: The only abnormality is glucose at 123. Her hemoglobin A1c is 5.4, triglycerides are 71, cholesterol 163, LDL cholesterol 113, HDL cholesterol 36.1. Incidentally, her TSH was 1.90. MENTAL STATUS EXAM: Magalie is a 22-year-old woman who is somewhat obese. She has dark blonde hair that appears to be dirty at this point. She has been combing it, so it is somewhat neat and tidy. She wears glasses. She is calm and cooperative. She does not appear to be anxious. She does appear to be tired. Her speech is a normal rate, tone, and volume. She is dysphoric. Her affect is somewhat constricted. Her thought processes are normal. Her thought content is free of delusions. She is not homicidal or suicidal. She does not have auditory or visual hallucinations. Her insight is fair. Her judgment is fair. She is alert and oriented times three. DIAGNOSES: AXIS I: Depressive disorder. AXIS II: Deferred. IMPRESSION: Magalie is a 22-year-old woman who comes to the hospital following stating to her mother that she does not want to live anymore. She is eager to feel better in regards to sleep and depression and wants her energy to return. PLAN: The patient is admitted to the Adult Behavioral Health Unit and placed on q.15 minute checks for her own safety. She is encouraged to participate in supportive milieu and individual and groups therapies. Her estimated length of stay is five to seven days. We will titrate medications, specifically sleep medications, to efficacy and monitor for mood and thought content. Discharge planning will include family involvement and outpatient providers. BRIANDA BOWDEN, JULIANNA [id number]/[facility] #: [id number] AVIVA
[2018-02-23] MEDS: Acetaminophen TAB* 325 MG PO PRN (11:18)
[2018-02-23] MEDS: Benzocaine/Menthol LOZ* 1 LOZENGE PO PRN (16:47)
--- NOTE | 2018-02-23 16:51 | PN ---
Subjective - Subjective Date of Service: 02/23/18 Service Type: 00062 Hosp care 15 min low complexity Subjective: Sherrie spent much of her day in bed asleep. When she was awake, she went to groups and participated. She discussed her sleep habits and it seems that her inability to sleep at night is likely due to her sleeping during the day and not getting exercise. We discussed sleep hygiene as well as encouraging activity. Objective - Appearance Appearance: Obese Dysmorphic Features: No Hygiene: Normal Grooming: Fairly Well Kept - Behavior Psychomotor Activities: Normal Exhibits Abnormal Movement: No - Attitude and Relatedness Attitude and Relatedness: Cooperative Eye Contact: Good - Speech Quality: Unpressured Latencies: Normal Quantity: Terse - Mood Patient's Decription of Mood: "Good" - Affect Affect Consistent with: Dysphoria - Thought Process Patient's Thought Process: Coherent Thought Content: Yes Passive Wish, No Suicidal Planning, No Homicidal Ideation, No Paranoid Ideation - Sensorium Experiencing Hallucinations: No, Sensorium is Clear Type of Hallucinations: Visual: No, Auditory: No, Command: No - Level of Consciousness Level of Consciousness: Alert Orientation: Yes Intact, Yes Orientated to Time, Yes Orientated to Place, Yes Orientated to Person - Impulse Control Impulse Control: Tenuous - Insight and Judgement Insight and Judgement: Fair - Group Participation Particating in Group Activities: Yes - Medication Management Medication Management Adherence: Yes - Additional Observations Comments: Sherrie is spending some time sleeping and some time in the milieu going to groups interacting with other peers. She also spends some time on the phone talking. Assessment - Assessment Merits Inpatient Hospitalization: For Immediate Safety, For Discharge Planning Inpatient DSM-V Dx: F33.1 Clinical Impression: Sherrie is a 22 year old female who is admitted for suicidal ideation after telling her mother that she doesn't want to live anymore. Sherrie does not endorse this statement any longer but also indicates that she is not eager to continue her life as it is. Plan - Plan Treatment Plan: Name: SHERRIE TRIPP Birthdate: 1995 [id number] Continued Medication Management: Different Medication Medications: Current Medications Acetaminophen (Tylenol Tab*) 650 mg PO Q4H PRN PRN Reason: for pain; or Temp >101 F Last Admin: 02/23/18 11:18 Dose: 650 mg Al Hydrox/Mg Hydrox/Simethicone (Maalox Plus*) 30 ml PO Q4H PRN PRN Reason: INDIGESTION Hydroxyzine HCl (Atarax Tab*) 50 mg PO Q6H PRN PRN Reason: ANXIETY Ibuprofen (Motrin Tab*) 600 mg PO Q6H PRN PRN Reason: PAIN Last Admin: 02/22/18 09:03 Dose: 600 mg Mirtazapine (Remeron Tab*) 7.5 mg PO BEDTIME PRN PRN Reason: SLEEP Last Admin: 02/22/18 21:22 Dose: 7.5 mg Throat Lozenges (Chloraseptic Christine*) 1 christine PO Q3H PRN PRN Reason: COUGH Last Admin: 02/23/18 16:47 Dose: 1 christine - Discharge Plan Discharge Plan: Outpatient Follow Up Outpatient Program: [facility] Additional Comments: Sherrie will be discharged on February 24. She will be referred to [facility] and to the [facility] program.
[2018-02-24 07:48] VITALS: BP 115/65
[2018-02-24] MEDS: Acetaminophen TAB* 325 MG PO PRN (09:08)
--- NOTE | 2018-02-25 14:20 | DS ---
CC: [facility].* DISCHARGE SUMMARY: DATE OF ADMISSION: 02/21/18 DATE OF DISCHARGE: 02/24/18 PROVIDER: Brianda Bowden, nurse practitioner in Psychiatry. SUPERVISING PHYSICIAN: Ezequiel Wells MD * (DICTATED BY BRIANDA BOWDEN, CAPTAIN WAITER ) DIAGNOSES: [place] I: Major depressive disorder. [place] II: Cluster B traits. CONDITION AT THE TIME OF DISCHARGE: Improved, psychiatrically cleared, stable, did not participate in many groups, was mildly social with peers. She did fine here psychiatrically. She tolerated med changes well. She will be attending [facility] and has been referred to the [facility] program. MENTAL STATUS EXAM: At the time of discharge, Magalie is calm, cooperative, makes good eye contact. She is alert and oriented x3. Her grooming is adequate. Her speech pace is normal. Her thought processes are logical. She is not psychotic, not delusional. She denies AH, VH, SI and HI. Her insight and judgment are fair. She is willing to followup, but it is not clear about the intensity of her ability to followup. DISCHARGE INSTRUCTIONS TO THE PATIENT: A. Medications: 1. Hydroxyzine 50 mg q.6 hours p.r.n. anxiety. 2. Mirtazapine 7.5 mg at bedtime p.r.n. sleep. B. Diet is regular. C. Activities as tolerated. Magalie is a nonsmoker. There are no studies pending at the time of discharge. D. Followup care. She has appointments at [facility] and has been referred to the [facility] program at that facility. E. Substance abuse followup is not indicated. HOSPITAL COURSE: Part A. Chief Complaint: "I want help sleeping and I want to get my energy and motivation back." The patient is a 22-year-old female who is single, white, with a history of depression and anxiety who arrived, brought in by her mom on voluntary status following her making statements such as "I do not really want to live anymore." Magalie is endorsing needing her mom in her life. She states she has been depressed since fifth grade and she has not been able to sleep for a couple of years. She describes her depression as having no energy and no social outlets. She is not sad, but she is "blahish." She is fatigued. She does not want to get out of bed because she does not want to face the world. She states that her sleep is correlated with depression. She states about her anxiety "mom thinks I am paranoid," rather it seems that she has high sensitivity that she is worried about what other people are thinking about her and what they might say about her behind her back. She is stressed out by feeling "lousy." She is not working. She is lonely. She also has back pain related to a weak core according to the doctor she has been to. She states she was suicidal last year because she was living with an aunt, named Rizwana who was "an awful person." She does not feel as though she can work right now. She has no energy. She has little interest in anything besides playing video games. She finds it difficult to concentrate. She reports that she does not eat well and she does from time to time have suicidal ideation. Part B. Psychiatric treatment was rendered: Magalie was admitted to the adult behavioral unit and placed on 15-minute checks for safety. She did well on the unit and went to a few groups. She interacted with select peers well. She did tolerate med changes well. Mirtazapine 7.5 was started to help her sleep at night. Hydroxyzine was given to her for reported anxiety, although it was not well observed. She could not remember what medication she had taken from home and therefore those were discontinued, as she did not find them "helpful anyway. " She spent much of her time in bed sleeping. When we discussed this and it was suggested that much of her problems sleeping and eating could come from not having a schedule and not having adequate sleep hygiene. She expressed little interest in changing that aspect of her life and believes that was not the source of the problem. No consults were entered for Elvi. She is subtly improved. She is known to the staff from outpatient treatment where they said her behavior was much the same as it is inpatient now. BRIANDA BOWDEN, JULIANNA [id number]/CPS #: [id number] AVIVA
== END 2018-02-24 12:35 | disposition home or self-care (01) | DRG 751 ==
LOC: ED 08:40 → BSU 13:14
PROVIDERS: ADMIT Psychiatry & Neurology Psychiatry; ATTEND Psychiatry & Neurology Psychiatry
DX: F33.1 Major depressive disorder, recurrent, moderate (principal); R45.851 Suicidal ideations; F60.3 Borderline personality disorder; F41.9 Anxiety disorder, unspecified; E66.9 Obesity, unspecified; K08.89 Other specified disorders of teeth and supporting structures; Z88.0 Allergy status to penicillin; Z81.8 Family history of other mental and behavioral disorders; Z56.0 Unemployment, unspecified; Z68.36 Body mass index [BMI] 36.0-36.9, adult; Z91.14 Patient's other noncompliance with medication regimen
CPT/HCPCS: 36415; 80053; 80061; 80320; 80329; 83036; 84443; 85025; 99222; 99231; 99238; 99284; A9270-GY; G0480

== ENCOUNTER 2018-10-18 12:05 | Inpatient (IN) | payer OTHER ==
--- NOTE | 2018-10-18 12:28 | ED ---
Psychiatric Complaint - HPI Summary HPI Summary: This pt is a 23 y/o female presenting to [facility] c/o SI thoughts and plan. Pt reports she has hx of anxiety and depression, for which she takes medications. She notes recent stressor, pt lives with her step father who is going through divorce and due to this pt has to leave his home. Pt states that the thought of being homeless is causing her stress. She reports SI thoughts and plan of "shoving a knife through her throat." Pt currently crying in the ED. Pt has been in the ED for mental health in the past. - History Of Current Complaint Chief Complaint: EDSuicidal Hx Obtained From: Patient Onset/Duration: Lasting Days, Still Present Timing: Days Severity Currently: Severe Character: Depressed Aggravating Factor(s): Recent Stress Alleviating Factor(s): Nothing Related History: Positive For: Prior Psychiatric Issues Has Suicidal: Reports: Thoughts, With A Plan Has Homicidal: Denies: Thoughts, With A Plan Recent Stressor(s): thought of being homeless after living with step father - Allergies/Home Medications Allergies/Adverse Reactions: Allergies Allergy/AdvReac Type Severity Reaction Status Date / Time Penicillins Allergy Rash Verified 02/21/18 09:07 PMH/Surg Hx/FS Hx/Imm Hx Endocrine/Hematology History: Denies: Hx Diabetes Cardiovascular History: Denies: Hx Hypertension, Hx Pacemaker/ICD Sensory History: Reports: Hx Contacts or Glasses, Hx Hearing Problem - Patient states left ear [place] at times Denies: Hx Cataracts, Hx Hearing Aid Opthamlomology History: Reports: Hx Contacts or Glasses Denies: Hx Cataracts Psychiatric History: Reports: Hx Anxiety, Hx Eating Disorder - Patient reports not eating for several days at a time, Hx Depression, Hx of Violent Episodes Against Others, Other Psychiatric Issues/Disorders - Borderline personality disorder Denies: Hx Panic Disorder Infectious Disease History: No Infectious Disease History: Denies: Hx Clostridium Difficile, Traveled Outside the [place] in Last 30 Days - Family History Family History: Mother with hx of depression. - Social History Alcohol Use: Rare Substance Use Type: Reports: Marijuana Substance Use Comment - Amount & Last Used: Marijuana 2xweek Smoking Status (MU): Never Smoked Tobacco Length of Time of Smoking/Using Tobacco: Patient has not smoked cig, chewed or vapored within the last 30 days. Review of Systems Negative: Fever, Chills Cardiovascular: Negative Respiratory: Negative Gastrointestinal: Negative Psychological: Other - POSITIVE: SI thoughts and plan, recent stress Positive: Depressed All Other Systems Reviewed And Are Negative: Yes Physical Exam - Summary Physical Exam Summary: VITAL SIGNS: Reviewed. GENERAL: Patient is a well-developed and nourished female. Patient is not in any acute respiratory distress. HEAD AND FACE: No signs of trauma. No ecchymosis, hematomas or skull depressions. No sinus tenderness. EYES: PERRLA, EOMI x 2, No injected conjunctiva, no nystagmus. EARS: Hearing grossly intact. Ear canals and tympanic membranes are within normal limits. MOUTH: Oropharynx within normal limits. NECK: Supple, trachea is midline, no adenopathy, no JVD, no carotid bruit, no c- spine tenderness, neck with full ROM. CHEST: Symmetric, no tenderness at palpation LUNGS: Clear to auscultation bilaterally. No wheezing or crackles. CVS: Regular rate and rhythm, S1 and S2 present, no murmurs or gallops appreciated. ABDOMEN: Soft, non-tender. No signs of distention. No rebound, no guarding, and no masses palpated. Bowel sounds are normal. EXTREMITIES: FROM in all major joints, no edema, no cyanosis or clubbing. NEURO: Alert and oriented x 3. No acute neurological deficits. Speech is normal and follows commands. SKIN: Dry and warm Triage Information Reviewed: Yes Vital Signs On Initial Exam: Initial Vitals Temp Pulse Resp BP Pulse Ox 97.3 F 89 22 143/83 97 10/18/18 12:12 10/18/18 12:12 10/18/18 12:12 10/18/18 12:12 10/18/18 12:12 Vital Signs Reviewed: Yes Diagnostics - Vital Signs Vital Signs Temp Pulse Resp BP Pulse Ox 10/18/18 12:12 97.3 F 89 22 143/83 97 - Laboratory Result Diagrams: 10/18/18 13:38 10/18/18 13:38 Lab Statement: Any lab studies that have been ordered have been reviewed, and results considered in the medical decision making process. Re-Evaluation - Re-Evaluation First Eval Re-Evaluation Time: 12:28 Comment: Pt is medically cleared. Course/Dx - Course Assessment/Plan: Pt is a 23 y/o female who presents to the ED with SI thoughts and plan. Pt reports she has hx of anxiety and depression, for which she takes medications. She notes recent stressor, pt lives with her step father who is going through divorce and due to this pt has to leave his home. Pt states that the thought of being homeless is causing her stress. She reports SI thoughts and plan of "shoving a knife through her throat." Pt currently crying in the ED. Pt has been in the ED for mental health in the past. Test results without any significant abnormalities, except for toxicology positive for cannabinoids. Pt was medically cleared. She is waiting for a MHE. She is alert and oriented x3, and hemodynamically stable. Pt had a mental health evaluation and her case was reviewed by Dr. Wells, psychiatrist. Per mental health fitness and wellness manager, Dr. Wells will admit the pt on a voluntary status with dx unspecified depression. - Differential Dx/Clinical Impression Provider Diagnosis: Depression Discharge - Sign-Out/Discharge Documenting (check all that apply): Patient Departure - Admit to [facility] Patient Received Moderate/Deep Sedation with Procedure: No - Discharge Plan Condition: Stable Disposition: PSYCHIATRIC FACILITY-[facility] Referrals: Hien Palafox, LIABILITY CLAIMS MANAGER [Nurse Practitioner] - - Attestation Statements Document Initiated by Scribe: Yes Documenting Scribe: Eveline Yanez Provider For Whom Scribe is Documenting (Include Credential): Boubacar Cordon MD Scribe Attestation: Eveline Clemente, scribed for Boubacar Cordon MD on 10/18/18 at 1408. Status of Scribe Document: Ready
[2018-10-18 13:02] LABS: Urine Appearance Cloudy; Urine Bacteria Absent (Absent); Urine Bilirubin Negative (Negative); Urine Blood Negative (Negative); Urine Color Yellow; Urine Glucose Negative (Negative); Urine Ketones Negative (Negative); Urine Nitrite Negative (Negative); Urine Protein Negative (Negative); Urine Red Blood Cell Absent (Absent); Urine Specific Gravity 1.015 (1.010-1.030); Urine Squamous Epithelial Cell Present (Absent); Urine Urobilinogen Negative (Negative); Urine White Blood Cell Trace(0-5/hpf) (Absent)
[2018-10-18 13:15] LABS: Urine Benzodiazepine Screen None Detected (None Detect); Urine Opiates Screen None Detected (None Detect)
[2018-10-18 13:51] LABS: ABS Basophils 0.1 10^3/ul (0-0.2); ABS Eosinophils 0.1 10^3/ul (0-0.6); ABS Lymphocytes 1.7 10^3/ul (1.0-4.8); ABS Monocytes 0.3 10^3/ul (0-0.8); ABS Neutrophils 5.3 10^3/ul (1.5-7.7); Eosinophil % 1.1 %; Hematocrit 42 % (35-47); Hemoglobin 14.6 g/dL (12.0-16.0); Mean Corpuscular HGB Conc 35 g/dL (31-36); Mean Corpuscular Hemoglobin 30 pg (27-31); Mean Corpuscular Volume 86 fL (80-97); Nucleated Red Blood Cells % 0.2; Platelet Count 262 10^3/uL (150-450); Red Blood Count 4.86 10^6 /uL (3.70-4.87); Red Cell Distribution Width 14 % (10-15); White Blood Count 7.5 10^3/uL (3.5-10.8)
[2018-10-18 14:07] LABS: ALT 28 U/L (7-52); AST 19 U/L (13-39); Albumin 4.3 g/dL (3.2-5.2); Albumin/Globulin Ratio 1.3 (1-3); Alkaline Phosphatase 54 U/L (34-104); Anion Gap 6 mmol/L (2-11); BUN/Creatinine Ratio 10.8 (8-20); Blood Urea Nitrogen 8 mg/dL (6-24); CO2 Carbon Dioxide 25 mmol/L (22-32); Calcium 9.5 mg/dL (8.6-10.3); Chloride 105 mmol/L (101-111); EGFR African American 117.7 (>60); EGFR Non-African American 97.3 (>60); Globulin 3.2 g/dL (2-4); Glucose 136 mg/dL (70-100); Potassium 3.9 mmol/L (3.5-5.0); Sodium 136 mmol/L (135-145); Total Protein 7.5 g/dL (6.4-8.9)
[2018-10-18] MEDS ORDERED: Al Hydrox/Mg Hydrox/Simet LIQ* 30 ML UDC PO PRN (14:27)
[2018-10-18 14:53] LABS: TSH (Thyroid Stimulating Horm) 1.12 mcIU/mL (0.34-5.60)
[2018-10-18 14:56] LABS: Acetaminophen < 15 mcg/mL; Alcohol < 10 mg/dL (<10); Salicylate < 2.50 mg/dL (<30)
[2018-10-18] MEDS: Acetaminophen TAB* 325 MG PO PRN ×2 (16:37→21:22)
[2018-10-18] MEDS: hydrOXYzine HCL TAB* 50 MG PO PRN (21:23)
[2018-10-19 07:16] LABS: Cholesterol 185 mg/dL; HDL Cholesterol 28.8 mg/dL; LDL Cholesterol 132 mg/dL; Triglycerides 122 mg/dL
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
[2018-10-19 10:22] LABS: HCG Pregnancy < 0.60 mIU/mL
[2018-10-19] MEDS: Acetaminophen TAB* 325 MG PO PRN (13:19)
[2018-10-19] MEDS ORDERED: diPHENhydraMINE PO* 25 MG PO PRN (13:43)
[2018-10-19] MEDS: DULoxetine DR CAP* 20 MG CAP.DR PO SCH (14:59)
--- NOTE | 2018-10-19 15:59 | PN ---
BSU: Group Therapy Note - Service Type Service Type: [id number] Group Psychotherapy - Medication Education Group: Patient was attentive and participatory in group, and remained in good behavioral control. Patient expressed positive insights regarding relevant treatment interventions. Patient stated understanding of material discussed and had appropriate questions.
[2018-10-19] MEDS: Clindamycin CAP* 150 MG PO SCH ×2 (16:12→20:12)
[2018-10-19] MEDS: CMCS: Lactase Enzyme (NF) 3,000 UNIT TAB PO SCH (16:51)
--- NOTE | 2018-10-19 17:20 | CONS ---
NEUROLOGY CONSULTATION NOTE: DATE OF CONSULT: 10/19/18 CONSULTING PROVIDER: Dr. Jovanny Amador. REASON FOR CONSULT: Upper extremity intermittent paresthesias. CHIEF COMPLAINT: Chronic neck and low back pain with intermittent numbness and tingling sensation radiating down upper extremities bilaterally. HISTORY OF PRESENT ILLNESS: Ms. Magalie Strange is a 23-year-old right-handed female, who has a history of depression, anxiety, chronic neck and low back pain , chronic tension headaches, who was hospitalized at [facility] for suicide ideation. The patient was admitted there on 10/18/18. The patient stated that she wanted to commit suicide by slicing her throat. When asked why, she stated that she had a nervous breakdown due to the stressors around her. Neurology was consulted today due to the complaints that the patient is having intermittent numbness and tingling sensation radiating down the upper extremities that occur intermittently and mostly when she lies flat. The patient stated that she has had these symptoms for over 5 years. She complains of associated symptoms of sharp stabbing pain in the cervical region, 6/10 in severity. The pain never goes away. She also stated that she has had a new type of pain today due to dental cavity that she has in the left side where she has jaw pain on the left radiating to the left shoulder area. Pain is also 6/10 in severity. She denied any focal weakness, but does feel fatigued. She has trouble lifting her arms at times. She has trouble lifting objects due to the pain. She also feels a shooting pain down her spine when she moves her neck forward. The patient also has a history of intermittent muscle spasms mostly involving the cervical, paraspinal, and trapezius muscles. PAST MEDICAL HISTORY: 1. Anxiety. 2. Depression. 3. Neck pain. 4. Headaches. PAST SURGICAL HISTORY: She has no history of any surgeries. HOME MEDICATIONS: Hydroxyzine. ALLERGIES: PENICILLIN. FAMILY HISTORY: Father and mother are healthy and alive. She denied any family history of stroke or seizures. SOCIAL HISTORY: She denied any tobacco use. She does smoke marijuana regularly. She denied alcohol use. She is non- and has no children. She did complete 1 semester of community college. REVIEW OF SYSTEMS: A 14-point review of systems was obtained and otherwise negative, except for what was mentioned in the HPI. Specifically, the patient denied any headaches at this time. PHYSICAL EXAM: Temperature of 97.9, pulse rate of 87, respiratory rate of 16, oxygen saturation of 100, blood pressure of 105/71. The patient is resting comfortably. She is sitting at the edge of the bed. General: Well-nourished, well-developed female in no acute distress. Alert and cooperative. Head: Normocephalic, atraumatic. Negative Lhermitte's and Spurling signs bilaterally. Eyes: Conjunctivae/corneas are clear. Neck is supple and symmetrical with no carotid bruit noted. Lungs are clear to auscultation bilaterally. Cardiovascular: Regular rate and rhythm with normal S1, S2. Extremities: Normal range of motion with no cyanosis. Skin: No skin lesions or lacerations. Psych: Flat affect and depressed mood. Easy to establish rapport. Neurological Examination: Mental Status: Alert, awake, and oriented to person, place, time, and general circumstance. Speech and language including expression, naming, and repetition were assessed and found to be normal. Cranial Nerves: Normal confrontation testing bilaterally. Pupils were midrange and reactive to light. Normal concentric response. Extraocular muscles are intact. There is no ptosis. Sensation is intact in the forehead, cheeks, and jaw regions bilaterally. There is no facial asymmetry. She is able to hear throughout the history process. Symmetrical palate elevation. Normal strength against shoulder shrug and resistance. Tongue is symmetrical and midline with no atrophy or fasciculation. Motor Examination: No abnormal movements or pronator drift. Normal bulk and tone throughout. No fasciculation. 5/5 strength in the upper and lower extremities, proximal lower extremities, proximal and distal muscles. Reflexes right/left: Brachioradialis 1/1, biceps 1/1, triceps 1/1, patella 1/1, ankle 1/1, plantar flexor/flexor. Sensation is intact to light touch throughout. The patient has reduced sensation to pinprick and light touch in the right face, arm, and leg. She stated that the reduction is about 5% to 10% difference when compared to the left side. Normal vibration measuring 15 seconds on the right and 16 seconds on the left great toe. Normal proprioception at the great toes. Coordination normal [id number] and rapid alternating movement. Gait and station narrow based. Normal stance and gait. No ataxia. ASSESSMENT AND RECOMMENDATIONS: Ms. Magalie Strange is a 23-year-old female with chronic history of neck and low back pain, who has intermittent paresthesias involving the upper extremities especially when she lies flat. Differential diagnosis here is cervical spondylosis without myelopathy with possible radiculopathy, bilateral carpal tunnel syndrome, although she had negative Tinel sign at the wrist and no sensation loss in the distribution of the median nerve. Demyelinating disease is low on the differential. I have ordered an MRI of the brain and cervical spine with and without contrast to evaluate for a structural abnormality. If negative, I recommend an outpatient EMG/nerve conduction study of the upper extremities to look for cervical radiculopathy or mononeuropathy at the wrist. Ordered B12 and Lyme titer. If all workup is negative, the patient most likely has pure sensory radiculopathy most likely involving the C6-C7 distribution or acute stress reaction with conversion disorder. Workup will need to be completed prior to giving her the latter diagnosis. Continue neuro checks every 4 hours. Continue supportive care. The patient does also complain of muscle aches. We can trial tizanidine 2 mg to be given at night for muscle spasms. I discussed these recommendations with Dr. Amador. I will continue to follow. [id number]/[facility] #: [id number] [facility] SYSTEMAnderson
[2018-10-19] MEDS ORDERED: Gadoteridol* (CONTRAST) 279.3 MG/ML 10 ML IV ONE (20:25)
[2018-10-19] MEDS: hydrOXYzine HCL TAB* 50 MG PO PRN (21:21)
[2018-10-20] MEDS: hydrOXYzine HCL TAB* 50 MG PO PRN ×2 (04:20→23:25)
[2018-10-20] MEDS: Acetaminophen TAB* 325 MG PO PRN ×2 (04:20→08:16)
[2018-10-20] MEDS: Clindamycin CAP* 150 MG PO SCH ×3 (08:16→20:50)
[2018-10-20] MEDS: CMCS: Lactase Enzyme (NF) 3,000 UNIT TAB PO SCH ×3 (08:16→16:52)
[2018-10-20] MEDS: DULoxetine DR CAP* 20 MG CAP.DR PO SCH (08:17)
--- NOTE | 2018-10-20 08:36 | PN ---
Subjective - Subjective Date of Service: 10/20/18 Service Type: 93068 Hosp care 35 min high complexity Subjective: Nursing Report: Patient was visible on unit, no chemical restraints, No overnight incident. Attended one group CC: "Fine Patient was seen and evaluated today. She reported feeling tired. She asked to be transferred to another hospital that is closer to where her mother lives. She reported having a headache last night and did not get good sleep. Objective - General Observations Appears Stated Age: Yes Stature: WNL Posture: Slumped Eye Contact: Avoidant Behavior/Activity: Slowed - Interaction Observations Attitude Towards Examiner: Anxious Stated Mood: Anxious Affect: Blunted Speech Pattern/Tone: Clear Thought Process: [place] Perception: WNL Thought Content: Depressive Hallucination Type: None Delusion Type: None - Cognitive Function Orientation: A&O x 4 Level of Consciousness: Awake - Medication Compliance Cooperative with Inpatient Medication Regimen: Yes - Group Participation Participates in Group Activities: Partial Assessment - Assessment Merits Inpatient Hospitalization: For Immediate Safety Clinical Impression: 23 year old female presented with suicidal ideation and anxiety about recent homelessness. Plan - Plan Treatment Plan: Name: SHERRIE TRIPP Birthdate: 1995 [id number] Plan #Q30 minute observation # The patient requires inpatient admission at this time to assure safety, receive treatment and work toward stabilization. # B12 level repeated # B-HCG was ordered and results are negative. # Collaboration with Installation Supervisor Juan Mejia # Neurology consult with Dr. Waldrop for bilateral paresthesia completed. MRI findings returned with no significant findings. #Increase cymbalta 30mg daily for depression/ anxiety # Homelessness SPO referral Tentative Discharge Wednesday Vital Signs Temp Pulse Resp BP Pulse Ox 98.0 F 87 16 135/84 98 10/20/18 08:00 10/20/18 08:00 10/20/18 08:00 10/20/18 08:00 10/20/18 08:00 Sodium 136 mmol/L (135-145) 10/18/18 13:38 Potassium 3.9 mmol/L (3.5-5.0) 10/18/18 13:38 BUN 8 mg/dL (6-24) 10/18/18 13:38 Creatinine 0.74 mg/dL (0.51-0.95) 10/18/18 13:38 Hemoglobin A1c 5.6 % (4.0-5.6) 10/19/18 06:37 Calcium 9.5 mg/dL (8.6-10.3) 10/18/18 13:38 AST 19 U/L (13-39) 10/18/18 13:38 ALT 28 U/L (7-52) 10/18/18 13:38 Triglycerides 122 mg/dL 10/19/18 06:37 Cholesterol 185 mg/dL 10/19/18 06:37 LDL Cholesterol 132 mg/dL 10/19/18 06:37 Continued Medication Management: Continue Outpt Medication Medications: Current Medications Acetaminophen (Tylenol Tab*) 650 mg PO Q4H PRN PRN Reason: for pain; or Temp >101 F Last Admin: 10/20/18 08:16 Dose: 650 mg Al Hydrox/Mg Hydrox/Simethicone (Maalox Plus*) 30 ml PO Q4H PRN PRN Reason: INDIGESTION Clindamycin HCl (Cleocin Cap*) 150 mg PO TID [facility] Last Admin: 10/20/18 08:16 Dose: 150 mg Diphenhydramine HCl (Benadryl Po*) 25 mg PO Q6H PRN PRN Reason: Allergy Symptoms Hydroxyzine HCl (Atarax Tab*) 50 mg PO Q6H PRN PRN Reason: ANXIETY Last Admin: 10/20/18 04:20 Dose: 50 mg Lactase (Lactaid Fast Act (Nf)) 3,000 unit PO TID WITH MEALS [facility]; Protocol Last Admin: 10/20/18 08:16 Dose: Not Given - Discharge Plan Discharge Plan: Inpatient Hospitalization
[2018-10-20] MEDS ORDERED: DULoxetine DR CAP* 30 MG CAP.DR PO SCH (09:00)
[2018-10-20] MEDS: Ibuprofen TAB* 600 MG PO PRN ×3 (11:49→23:25)
[2018-10-20] MEDS: Cyanocobalamin TAB* 500 MCG PO SCH (11:49)
[2018-10-20] MEDS: diPHENhydraMINE PO* 25 MG PO PRN (20:51)
[2018-10-21] MEDS: Cyanocobalamin TAB* 500 MCG PO SCH ×2 (07:43→18:22)
[2018-10-21] MEDS: CMCS: Lactase Enzyme (NF) 3,000 UNIT TAB PO SCH ×3 (07:43→17:07)
[2018-10-21] MEDS: DULoxetine DR CAP* 30 MG CAP.DR PO SCH (07:43)
[2018-10-21] MEDS: Ibuprofen TAB* 600 MG PO PRN ×4 (07:43→23:00)
[2018-10-21] MEDS: Clindamycin CAP* 150 MG PO SCH ×3 (07:44→20:17)
[2018-10-21] MEDS ORDERED: Magic M W2 Ben/Maal/Nyst/Lido* 240 ML MOUTHWASH (alt formulation) SWISH SPIT PRN (11:02)
--- NOTE | 2018-10-21 11:21 | PN ---
Subjective - Subjective Date of Service: 10/21/18 Service Type: 48383 Hosp care 35 min high complexity Subjective: Nursing Report: Patient was visible on unit, no chemical restraints or PRNs. No overnight incidents. Attending some group activities. CC: "Fine Patient was seen and evaluated today in the common room. The patient reported not sleeping well overnight. She expressed having mouth pain from a tooth that has been bothering. She said that her mother made her a dentist appointment for when she leaves the hospital. Per nursing no behavioral issues or overnight events reported. Patient reported that she is tolerating medications without side effects. Objective - General Observations Appears Stated Age: Yes Stature: WNL Posture: WNL Eye Contact: Average Behavior/Activity: WNL - Interaction Observations Attitude Towards Examiner: Cooperative Stated Mood: Dysphoric Affect: Blunted Speech Pattern/Tone: Clear Thought Process: Coherent Perception: WNL Thought Content: Self-Deprecatory Hallucination Type: None Delusion Type: None - Cognitive Function Orientation: A&O x 4 Level of Consciousness: Awake - Medication Compliance Cooperative with Inpatient Medication Regimen: Yes - Group Participation Participates in Group Activities: Partial Assessment - Assessment Merits Inpatient Hospitalization: For Immediate Safety Clinical Impression: 23 year old female presented with suicidal ideation and anxiety about recent homelessness. Plan - Plan Treatment Plan: Name: SHERRIE TRIPP Birthdate: 1995 [id number] Plan #Q30 minute observation # The patient requires inpatient admission at this time to assure safety, receive treatment and work toward stabilization. # B12 level repeated at within normal range # B-HCG was ordered and results are negative. # Collaboration with Bottle Assembler Juan Mejia # Neurology consult with Dr. Waldrop for bilateral paresthesia completed. MRI findings returned with no significant findings. #Continue cymbalta 30mg daily for depression/ anxiety # Homelessness SPO referral #Magic mouth wash for mouth pain Tentative Discharge Wednesday Vital Signs Temp Pulse Resp BP Pulse Ox 97.4 F 79 14 131/76 99 10/21/18 08:00 10/21/18 08:00 10/21/18 08:00 10/21/18 08:00 10/21/18 08:00 Sodium 136 mmol/L (135-145) 10/18/18 13:38 Potassium 3.9 mmol/L (3.5-5.0) 10/18/18 13:38 BUN 8 mg/dL (6-24) 10/18/18 13:38 Creatinine 0.74 mg/dL (0.51-0.95) 10/18/18 13:38 Hemoglobin A1c 5.6 % (4.0-5.6) 10/19/18 06:37 Calcium 9.5 mg/dL (8.6-10.3) 10/18/18 13:38 AST 19 U/L (13-39) 10/18/18 13:38 ALT 28 U/L (7-52) 10/18/18 13:38 Triglycerides 122 mg/dL 10/19/18 06:37 Cholesterol 185 mg/dL 10/19/18 06:37 LDL Cholesterol 132 mg/dL 10/19/18 06:37 Continued Medication Management: Continue Outpt Medication Medications: Current Medications Al Hydrox/Mg Hydrox/Simethicone (Maalox Plus*) 30 ml PO Q4H PRN PRN Reason: INDIGESTION Clindamycin HCl (Cleocin Cap*) 150 mg PO TID [facility] Last Admin: 10/21/18 07:44 Dose: 150 mg Cyanocobalamin (Vitamin B12 Tab*) 1,000 mcg PO DAILY [facility] Last Admin: 10/21/18 07:43 Dose: 1,000 mcg Diphenhydramine HCl (Benadryl Po*) 25 mg PO Q6H PRN PRN Reason: Allergy Symptoms Last Admin: 10/20/18 20:51 Dose: 25 mg Duloxetine HCl (Cymbalta Cap*) 30 mg PO 0900 [facility] Last Admin: 10/21/18 07:43 Dose: 30 mg Hydroxyzine HCl (Atarax Tab*) 50 mg PO Q6H PRN PRN Reason: ANXIETY Last Admin: 10/20/18 23:25 Dose: 50 mg Ibuprofen (Motrin Tab*) 600 mg PO Q4H PRN PRN Reason: PAIN Last Admin: 10/21/18 07:43 Dose: 600 mg Lactase (Lactaid Fast Act (Nf)) 3,000 unit PO TID WITH MEALS [facility]; Protocol Last Admin: 10/21/18 07:43 Dose: Not Given Multi-Ingredient Mouthwash/Gargle (Magic M W2 Gene/Maal/Nyst/Lido*) 5 ml SWISH SPIT QID PRN PRN Reason: PAIN - Discharge Plan Discharge Plan: Inpatient Hospitalization
[2018-10-21] MEDS: hydrOXYzine HCL TAB* 50 MG PO PRN ×2 (13:17→20:16)
--- NOTE | 2018-10-21 17:56 | CONSULT ---
Consult Consult: Reviewed MRI brain and C spine imaging. Studies are negative for demyelinating disease. There are no concerning areas of intracranial abnormalities that would explain the patient's intermittent symptoms. Her B12 level was low. I started cyanocobalamin 1,000 mcg PO daily starting today and one time cyanocobalamin 1,000 mcg IM injection x 1 today. This will hopefully improve her intermittent paresthesia. If she continues to have symptoms, please obtain an outpatient appointment at [facility] Neurology for further evaluation. We can decide if she needs an outpatient EMG/NCS study. Neurology will sign off. Please contact us for any questions or concerns.
[2018-10-21] MEDS: Cyanocobalamin INJ * 1,000 MCG/ML VIAL 1 ML VIAL IM ONE (18:28)
[2018-10-21] MEDS: diPHENhydraMINE PO* 25 MG PO PRN (20:16)
[2018-10-22] MEDS: CMCS: Lactase Enzyme (NF) 3,000 UNIT TAB PO SCH ×3 (08:37→17:06)
[2018-10-22] MEDS: Clindamycin CAP* 150 MG PO SCH ×3 (08:38→21:43)
[2018-10-22] MEDS: Ibuprofen TAB* 600 MG PO PRN ×2 (08:40→23:23)
[2018-10-22] MEDS: DULoxetine DR CAP* 30 MG CAP.DR PO SCH (08:40)
[2018-10-22] MEDS: Cyanocobalamin TAB* 500 MCG PO SCH (08:40)
[2018-10-22] MEDS: Cyanocobalamin INJ * 1,000 MCG/ML VIAL 1 ML VIAL IM ONE (08:52)
--- NOTE | 2018-10-22 17:11 | PN ---
Subjective - Subjective Date of Service: 10/22/18 Service Type: 81610 Hosp care 25 min moderate complexity Subjective: Sherrie was in the milieu with peers and reported that she feels safe and supported on the unit and she didn't have any SI since her admission. Still not sure about a safe place but thinks she might be able to go to her grand mother temporarily. Had a good sleep last night and feels well rested. Taking and tolerating meds well. Objective - General Observations Appearance: Neat Appears Stated Age: Yes Stature: Overweight Posture: WNL Eye Contact: Average Behavior/Activity: WNL - Interaction Observations Attitude Towards Examiner: Cooperative Stated Mood: Anxious Affect: Restricted Speech Pattern/Tone: Clear, Appropriate, Normal Volume Thought Process: Coherent, Goal Directed Perception: WNL Thought Content: WNL Hallucination Type: None Delusion Type: None - Cognitive Function Orientation: A&O x 4 Level of Consciousness: Awake, Alert, Appropriate Cognition: WNL Estimated Intelligence: Normal Insight: WNL Judgment Within Normal Limits: Yes - Medication Compliance Cooperative with Inpatient Medication Regimen: Yes - Group Participation Participates in Group Activities: Yes Assessment - Assessment Merits Inpatient Hospitalization: For Immediate Safety, For Stabilization, Pending Safe DC Plan Clinical Impression: 23 year old female presented with suicidal ideation and anxiety about recent homelessness. Plan - Plan Treatment Plan: Name: SHERRIE TRIPP Birthdate: 1995 [id number] Plan #Q30 minute observation # The patient requires inpatient admission at this time to assure safety, receive treatment and work toward stabilization. # B12 level repeated at within normal range # B-HCG was ordered and results are negative. # Collaboration with Bulbs Farmworker Juan Mejia # Neurology consult with Dr. Waldrop for bilateral paresthesia completed. MRI findings returned with no significant findings. #Continue cymbalta 30mg daily for depression/ anxiety # Homelessness SPO referral #Magic mouth wash for mouth pain Tentative Discharge Wednesday Vital Signs Temp Pulse Resp BP Pulse Ox 97.4 F 79 14 131/76 99 10/21/18 08:00 10/21/18 08:00 10/21/18 08:00 10/21/18 08:00 10/21/18 08:00 Sodium 136 mmol/L (135-145) 10/18/18 13:38 Potassium 3.9 mmol/L (3.5-5.0) 10/18/18 13:38 BUN 8 mg/dL (6-24) 10/18/18 13:38 Creatinine 0.74 mg/dL (0.51-0.95) 10/18/18 13:38 Hemoglobin A1c 5.6 % (4.0-5.6) 10/19/18 06:37 Calcium 9.5 mg/dL (8.6-10.3) 10/18/18 13:38 AST 19 U/L (13-39) 10/18/18 13:38 ALT 28 U/L (7-52) 10/18/18 13:38 Triglycerides 122 mg/dL 10/19/18 06:37 Cholesterol 185 mg/dL 10/19/18 06:37 LDL Cholesterol 132 mg/dL 10/19/18 06:37 Continued Medication Management: Continue Outpt Medication Medications: Current Medications Al Hydrox/Mg Hydrox/Simethicone (Maalox Plus*) 30 ml PO Q4H PRN PRN Reason: INDIGESTION Clindamycin HCl (Cleocin Cap*) 150 mg PO TID [facility] Last Admin: 10/22/18 13:43 Dose: 150 mg Cyanocobalamin (Vitamin B12 Tab*) 1,000 mcg PO DAILY [facility] Last Admin: 10/22/18 08:40 Dose: 1,000 mcg Diphenhydramine HCl (Benadryl Po*) 25 mg PO Q6H PRN PRN Reason: Allergy Symptoms Last Admin: 10/21/18 20:16 Dose: 25 mg Duloxetine HCl (Cymbalta Cap*) 30 mg PO 0900 [facility] Last Admin: 10/22/18 08:40 Dose: 30 mg Hydroxyzine HCl (Atarax Tab*) 50 mg PO Q6H PRN PRN Reason: ANXIETY Last Admin: 10/21/18 20:16 Dose: 50 mg Ibuprofen (Motrin Tab*) 600 mg PO Q4H PRN PRN Reason: PAIN Last Admin: 10/22/18 08:40 Dose: 600 mg Lactase (Lactaid Fast Act (Nf)) 3,000 unit PO TID WITH MEALS [facility]; Protocol Last Admin: 10/22/18 17:06 Dose: Not Given Multi-Ingredient Mouthwash/Gargle (Magic M W2 Gene/Maal/Nyst/Lido*) 5 ml SWISH SPIT QID PRN PRN Reason: PAIN Last Admin: 10/21/18 12:45 Dose: 5 ml - Discharge Plan Discharge Plan: Outpatient Follow Up Outpatient Program: [facility] Dorado [facility]
[2018-10-22] MEDS ORDERED: Zolpidem TAB* 5 MG PO ONE (23:40)
[2018-10-22] MEDS ORDERED: Zolpidem TAB* 5 MG ONE (23:42)
[2018-10-23] MEDS: CMCS: Lactase Enzyme (NF) 3,000 UNIT TAB PO SCH ×3 (08:00→17:06)
[2018-10-23] MEDS: Cyanocobalamin TAB* 500 MCG PO SCH (08:00)
[2018-10-23] MEDS: DULoxetine DR CAP* 30 MG CAP.DR PO SCH (08:00)
[2018-10-23] MEDS: Clindamycin CAP* 150 MG PO SCH ×3 (08:00→21:53)
[2018-10-23] MEDS: diPHENhydraMINE PO* 25 MG PO PRN (21:56)
[2018-10-23] MEDS: hydrOXYzine HCL TAB* 50 MG PO PRN (21:56)
[2018-10-23] MEDS ORDERED: Zolpidem TAB* 5 MG PO ONE (22:45)
[2018-10-23] MEDS ORDERED: Zolpidem TAB* 5 MG ONE (22:55)
[2018-10-24] MEDS: DULoxetine DR CAP* 30 MG CAP.DR PO SCH (07:58)
[2018-10-24] MEDS: Cyanocobalamin TAB* 500 MCG PO SCH (07:58)
[2018-10-24] MEDS: CMCS: Lactase Enzyme (NF) 3,000 UNIT TAB PO SCH ×2 (07:59→11:38)
[2018-10-24] MEDS: Clindamycin CAP* 150 MG PO SCH (07:59)
[2018-10-24 08:39] VITALS: BP 112/67
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
[2018-10-24] MEDS: Ibuprofen TAB* 600 MG PO PRN (11:37)
[2018-10-24] MEDS: diPHENhydraMINE PO* 25 MG PO PRN (11:38)
== END 2018-10-24 13:35 | disposition home or self-care (01) | DRG 751 ==
LOC: ED 12:05 → BSU 14:27
PROVIDERS: ADMIT Psychiatry & Neurology Psychiatry; ATTEND Psychiatry & Neurology Psychiatry
PROC: GZHZZZZ Group Psychotherapy (ICD-10-PCS; principal; 2018-10-19)
DX: F32.2 Major depressive disorder, single episode, severe without psychotic features (principal); R45.851 Suicidal ideations; F41.9 Anxiety disorder, unspecified; F60.3 Borderline personality disorder; F50.9 Eating disorder, unspecified; H91.92 Unspecified hearing loss, left ear; Z62.810 Personal history of physical and sexual abuse in childhood; G43.909 Migraine, unspecified, not intractable, without status migrainosus; G44.229 Chronic tension-type headache, not intractable; F90.9 Attention-deficit hyperactivity disorder, unspecified type; G89.29 Other chronic pain; R20.2 Paresthesia of skin; M54.5 Low back pain; M54.2 Cervicalgia; Z81.1 Family history of alcohol abuse and dependence; Z81.8 Family history of other mental and behavioral disorders; Z88.0 Allergy status to penicillin; Z68.35 Body mass index [BMI] 35.0-35.9, adult; Z59.0 Homelessness
CPT/HCPCS: 36415; 70553; 72156; 80053; 80061; 80307; 80320; 80329; 81003; 81015; 82607; 83036; 84443; 84702; 85025; 86618; 87086; 90853; 99222; 99232; 99233; 99238; 99284; A9270-GY; A9579; G0480; J3420